=== PATIENT | male | born 1970 | race Caucasian/White ===

== ENCOUNTER 2022-07-15 07:57 | Outpatient (CLI) | payer OTHER, SELFPAY ==
[2022-07-15 10:17] LABS: Albumin* 3.9 g/dL (3.3-5.0)
[2022-07-15 10:18] LABS: Chloride* 106 mmol/L (96-114); Potassium* 4.3 mmol/L (3.6-5.1); Sodium* 140 mmol/L (135-149)
[2022-07-15 10:20] LABS: Aspartate Amino Transferase* 25 U/L (12-35); Bilirubin Total* 0.8 mg/dL (0.1-1.5); Carbon Dioxide* 31 mmol/L (20-32); Cholesterol* 239 mg/dL (90-199); Estimated Glomerular Filt Rate 91 ml/min; Total Protein* 6.9 g/dL (6.0-8.3)
[2022-07-15 10:21] LABS: Alanine Aminotransferase* 30 U/L (4-50); Alkaline Phosphatase* 63 U/L (40-150); Blood Urea Nitrogen* 16 mg/dL (7-30); Calcium* 9.2 mg/dL (8.4-10.6); Glucose* 103 mg/dL (60-115); HDL Cholesterol* 45 mg/dL (>=40); LDL Cholesterol Calculated 145 mg/dL (<100); Triglycerides* 245 mg/dL (40-149)
[2022-07-15 10:52] LABS: PSA Screen* 1.04 ng/mL (0.10-4.00)
== END 2022-07-15 07:58 | disposition home or self-care (01) ==
PROVIDERS: PCP Family Medicine; Visit Provider Family Medicine
DX: E78.5 Hyperlipidemia, unspecified (principal); Z12.5 Encounter for screening for malignant neoplasm of prostate
CPT/HCPCS: 80053; 80061; 84153

== ENCOUNTER 2023-04-18 09:55 | Outpatient (CLI) | payer OTHER, SELFPAY ==
--- NOTE | 2023-04-18 11:13 | W.ANESCHARGE ---
Anesthesia Charges Start Date/Time Anesthesia Start Date: 04/18/23 Anesthesia Start Time: 10:38 Stop Date/Time Anesthesia Stop Date: 04/18/23 Anesthesia Stop Time: 11:10
== END 2023-04-18 09:56 | disposition home or self-care (01) ==
LOC: OP CLINIC 09:55
PROVIDERS: PCP Family Medicine; Visit Provider Surgery
DX: Z12.11 Encounter for screening for malignant neoplasm of colon (principal); K63.5 Polyp of colon; Z80.0 Family history of malignant neoplasm of digestive organs
CPT/HCPCS: 45385; 811; 88305; J2704

== ENCOUNTER 2023-10-23 07:38 | Outpatient (CLI) | payer OTHER, SELFPAY ==
--- OUTSIDE RECORDS SUMMARY | 2023-10-25 08:39 | XMS_ITS | Referral Summary ---
Author Name Unknown Organization [facility] Address [address] [place] [address] Care Team Providers Care Pulp Grinder Feeder Name Role Phone Elsewhere, Pcp Primary Care Provider Unavailabl e Source Comments Patient records contain information from all sites at [facility]. For routine questions regarding patient records, call [phone] during business hours, M-F 8:00 AM - 5:00 PM Central Time. Record requests for emergency care only can be directed to [phone] at any time.[facility] Allergies No known active allergies Medications Medication Sig Dispensed Refills Start Date End Date Status pravastatin (PRAVACHOL) 40 mg tablet Take 40 mg by mouth daily. 06/23/2015 Active triamcinolone (KENALOG) 0.1 % cream Apply topically 2 (two) times a day. Apply to affected area 2 times daily as needed. Avoid face and groin. 30 g 3 12/06/2022 Active Active Problems No known active problems Immunizations Name Administration Dates Next Due Td (Adult), adsorbed 10/24/1997 Tdap 09/13/2010 Social History Tobacco Use Types Packs/Day Years Used Date Smoking Tobacco: Never Smokeless Tobacco: Never Tobacco Cessation:Counseling Given: Not Answered PHQ-2 Answer Date Recorded PHQ-2 Score 0 12/06/2022 Nutrition Answer Date Recorded Nutrition: EVOO Fat Source Unknown 08/14 Nutrition: Servings of Fruits/Vegetables per Day Not on file 08/14/2020 Dental Answer Date Recorded Dental: Regular Dentist Unknown 08/15/19 21 Sex and Gender Information Value Date Recorded Sex Assigned at Not on file Gender Identity Not on file Sexual Orientation Not on file Last Filed Vital Signs Vital Sign Reading Time Taken Comments Blood Pressure 120/85 12/06/2022 10:39 AM CDT Pulse 65 12/06/2022 10:39 AM CDT Temperature 36.3 ??C (97.3 ??F) 12/06/2022 10:39 AM C DT Respiratory Rate 18 11/05/2019 7:55 PM CDT Oxygen Saturation 94% 12/06/2022 10:39 AM CDT Inhaled Oxygen Concentration - - Weight 123 kg (270 lb 4.5 oz) 12/06/2022 10:39 A M CDT Height 173.8 cm (5' 8.43) 12/06/2022 10:39 AM C DT Body Mass Index 40.59 12/06/2022 10:39 AM CDT Plan of Treatment Not on file Procedures Procedure Name Priority Date/Time Associated Diagnosis Comments GLUCOSE, FASTING, S/P Routine 06/23/2015 7:41 AM [facility] [employer] [facility] LIPID PANEL, S Routine 06/23/2015 7:41 AM [facility] [employer] from Last 3 Months or Most Recently Relevant to Health Maintenance Results * (ABNORMAL) Lipid Panel (06/23/2015 7:41 AM [facility] [employer]) Cholesterol, Total 180 <=199 MGDL POWERCHART Comment: 2014 National Lipid Association recommendations for Total Cholesterol in adults ages 18 and up: Desirable <200 mg/dL Borderline high 200-239 mg/dL High 240 mg/dL 2014 National Lipid Association recommendations for Total Cholesterol in children ages 2 to 17. Acceptable <170 mg/dL Borderline High 170-199 mg/dL High 200 mg/dL HX HDL 34(L) >=40 MGDL POWERCHART Comment: 2014 National Lipid Association recommendations for HDL-C in adults ages 18 and up: Low <40 mg/dL (Men) Low <50 mg/dL (Women) 2014 National Lipid Association recommendations for HDL-C in children ages 2 to 17. Low <40 mg/dL Borderline Low 40-45 mg/dL Acceptable >45 mg/dL Triglycerides 362(H) <=149 MGDL POWERCHART Comment: 2014 National Lipid Association recommendations for Triglycerides in adults ages 18 and up: Normal <150 mg/dL Borderline High 150-199 mg/dL High 200-499 mg/dL Very High 500 mg/dL 2014 National Lipid Association recommendations for Triglycerides in children ages 2 to 9. Acceptable <75 mg/dL Borderline High 75-99 mg/dL High 100 mg/dL 2014 National Lipid Association recommendations for Triglycerides in children ages 10 to 17. Acceptable <90 mg/dL Borderline High 90-129 mg/dL High 130 mg/dL Trigs >400mg/dL: Triglycerides >400 mg/dL. Calculated LDL cholesterol is not valid. Non-HDL cholesterol may be used for risk assessment when triglycerides are >400mg/dL. Calculated LDL 74 <=129 MGDL POWERCHART Comment: 2014 National Lipid Association recommendations for LDL-C in adults ages 18 and up: Desirable <100 mg/dL Above desirable 100-129 mg/dL Borderline high 130-159 mg/dL High 160-189 mg/dL Very High 190 mg/dL 2014 National Lipid Association recommendations for LDL-C in children ages 2 to 17. Acceptable <110 mg/dL Borderline High 110-129mg/dL High 130 mg/dL LDL-C >190mg/dL: The markedly elevated LDL level is suggestive of a genetic condition such as familial hypercholesterolemia(FH) or familial defective apolipoprotein B-100 (FDB). Molecular genetic testing for FH and FDB is available through [facility]: FH/ADH Genetic Reflex Panel (test ADHP). Acquired (non-genetic) causes of markedly increased LDL cholesterol include cholestatic liver disease due to the presence of LpX. If a genetic form of hypercholesterolemia is suspected, family studies including biochemical testing for lipids (total cholesterol,triglycerides, LDL cholesterol and HDL cholesterol) are recommended. ??Please contact the laboratory at or the on-line test catalog at [email or web address] for information about how to order these tests or to speak with a genetic counselor. Further interpretation would require clinical information. Total Cholesterol/HDL Ratio 5 POWERCHART HXLDL/HDL 2 POWERCHART Blood 06/23/2015 7:41 AM [facility] [employer] Dajuan Chacon M.D. LAB BLOOD ADD-ON POWERCHART * (ABNORMAL) Glucose, Fasting (06/23/2015 7:41 AM [employer]) Glucose, Fasting, S 105(H) 70 - 99 MGDL POWERCHART Blood 06/23/2015 7:41 AM [employer] Dajuan Chacon M.D. LAB BLOOD NON ADD-ON POWERCHART from Last 3 Months or Most Recently Relevant to Health Maintenance Care Teams Pulp Grinder Feeder Relationship Specialty Start Date End Date Elsewhere, Pcp PCP - General 09/11/19
--- OUTSIDE RECORDS SUMMARY | 2023-10-25 08:39 | XMS_ITS | Continuity of Care Document ---
Author Name Unknown Organization [facility] Address [address] [place] [address] Care Team Providers Care Leadership Development Consultant Name Role Phone Elsewhere, Pcp Primary Care Provider Unavailabl e Source Comments Patient records contain information from all sites at [facility]. For routine questions regarding patient records, call [phone] during business hours, M-F 8:00 AM - 5:00 PM Central Time. Record requests for emergency care only can be directed to [phone] at any time.[facility] Encounters Date Type Department Care Team Description 12/06/2022 10:45 AM CDT Office Visit Department of Family Medicine, [facility], in [address] [phone] Joselin Maurer M.D. Insect Bite Arm Initial Right (Primary Dx) Discharge Disposition: Home or Self Care 12/06/2022 Nurse Triage Department of [facility], [facility], [address] [phone] Alex Mccall R.N. Rash 09/11/2020 Orders Only [facility] 03/26/2020 External Outreach Department of Family Medicine, [facility], in [address] [phone] Obed Abraham P.A.-C., P.A. Infection Upper Respiratory (Primary Dx) 03/26/2020 Clinical Communication Division of Community Internal Medicine, [facility] in [place], [place] [address] [place] [phone] Annette Nj R.N. COVID Nurse Line 11/05/2019 7:47 PM CDT - 11/05/2019 8:43 PM CDT Emergency [facility] [address] [place] [phone] Roman Ortiz APRN, C.N.P., M.S.N. Sprain Ankle Initial Left (Primary Dx) Discharge Disposition: Home or Self Care 07/23/2019 Orders Only [facility] PCP [facility] Cathryn Jarrett M.D. Screening Examination Diabetes Mellitus 04/11/2017 Orders Only Department of Family Medicine, [facility], in [place], [place] [address] [place] [phone] Dajuan Chacon M.D. General Medical Examination Adult 09/01/2016 11:42 AM CDT - 09/01/2016 11:59 PM CDT Hospital Encounter [facility]X [facility] Evy Flynn APRN, C.N.Bonita., R.N. 06/23/2015 7:30 AM DOWEL INSERTING MACHINE OPERATOR - 06/23/2015 11:59 PM DOWEL INSERTING MACHINE OPERATOR Hospital Encounter HX [facility] Dajuan Trevizo M.D. 03/24/2014 7:38 AM CDT - 03/24/2014 11:59 PM CDT Hospital Encounter HX [facility] Dajuan Trevizo M.D. 08/30/2013 - 08/30/2013 11:59 PM CDT Hospital Encounter HX [facility] Dajuan Trevizo M.D. 06/15/2013 9:08 AM DOWEL INSERTING MACHINE OPERATOR - 06/15/2013 11:59 PM DOWEL INSERTING MACHINE OPERATOR Hospital Encounter HX NO MAPPING Eloise Zaman P.A.-C., P.A. 02/01/2013 7:31 AM CDT - 02/01/2013 11:59 PM CDT Hospital Encounter HX [facility] LAB Provider, Historical 02/01/2013 7:45 AM CDT - 02/01/2013 11:59 PM CDT Hospital Encounter HX [facility] Dajuan Trevizo M.D. 01/28/2013 - 01/28/2013 11:59 PM CDT Hospital Encounter [facility]X [facility] Dajuan Chacon M.D. 04/03/2012 8:23 AM CDT - 04/03/2012 11:59 PM CDT Hospital Encounter [facility] Dajuan Chacon M.D. 09/13/2010 2:52 PM CDT - 09/13/2010 11:59 PM CDT Hospital Encounter [facility]X [facility] Martínez Benito M.D. 01/02/2009 - 01/02/2009 11:59 PM CDT Hospital Encounter [facility]X [facility] aDjuan Chacon M.D. 04/27/2007 3:19 PM DOWEL INSERTING MACHINE OPERATOR - 04/27/2007 11:59 PM DOWEL INSERTING MACHINE OPERATOR Hospital Encounter [facility]X [facility] Anna Dodd P.A.-Zoraida., P.A. 08/11/2005 - 08/11/2005 11:59 PM DOWEL INSERTING MACHINE OPERATOR Hospital Encounter HX [facility] Dajuan Chacon M.D. 11/26/2004 1:38 PM CDT - 11/26/2004 11:59 PM CDT Hospital Encounter HX [facility] Aida Arzola, Mario. 06/19/2003 5:19 PM DOWEL INSERTING MACHINE OPERATOR - 06/19/2003 11:59 PM DOWEL INSERTING MACHINE OPERATOR Hospital Encounter HX NO MAPPING Dajuan Lopez M.D. 06/03/2003 2:11 PM DOWEL INSERTING MACHINE OPERATOR - 06/03/2003 11:59 PM DOWEL INSERTING MACHINE OPERATOR Hospital Encounter [facility]X [facility] Provider, Historical 05/27/2003 3:55 PM DOWEL INSERTING MACHINE OPERATOR - 05/27/2003 11:59 PM DOWEL INSERTING MACHINE OPERATOR Hospital Encounter [facility]X [facility] Provider, Historical 04/17/2003 10:18 AM DOWEL INSERTING MACHINE OPERATOR - 04/17/2003 11:59 PM DOWEL INSERTING MACHINE OPERATOR Hospital Encounter HX [facility] Dajuan Chacon M.D. 02/13/2003 5:02 PM CDT - 02/13/2003 11:59 PM CDT Hospital Encounter HX NO MAPPING Stanford Alex M.D. 08/20/2002 10:54 AM DOWEL INSERTING MACHINE OPERATOR - 08/20/2002 11:59 PM DOWEL INSERTING MACHINE OPERATOR Hospital Encounter HX [facility] Dajuan Trevizo M.D. 08/13/2002 2:16 PM DOWEL INSERTING MACHINE OPERATOR - 08/13/2002 11:59 PM DOWEL INSERTING MACHINE OPERATOR Hospital Encounter HX [facility] Dajuan Trevizo M.D. 02/20/2002 - 02/20/2002 11:59 PM CDT Hospital Encounter HX [facility] Dajuan Trevizo M.D. 07/26/2001 8:44 AM DOWEL INSERTING MACHINE OPERATOR - 07/26/2001 11:59 PM DOWEL INSERTING MACHINE OPERATOR Hospital Encounter HX [facility] Dajuan Trevizo M.D. 07/24/2001 - 07/24/2001 11:59 PM DOWEL INSERTING MACHINE OPERATOR Hospital Encounter HX NO MAPPING Provider, Historical Allergies No known active allergies Medications Medication [...] Due Td (Adult), adsorbed 10/24/1997 Tdap 09/13/2010 Family History Medical History Relation Name Comments Heart disease Father questionable h eart disease Atrial septal defect Sister Disorder of thyroid gland Sister Relation Name Status Comments Father Sister Social History Smoking Status as of 10/25/2023 Tobacco Use Types Packs/Day Years Used Date Smoking Tobacco: Never Assessed PHQ-2 Answer Date Recorded PHQ-2 Score 0 [...] Procedure Name Priority Date/Time Associated Diagnosis Comments SARS CORONAVIRUS-2 RNA, V Routine 03/26/2020 2:23 PM CDT Infection Upper Respiratory DX ANKLE LEFT 3+ VIEWS RAD - Semiurgent (Fast; most ED patients; some inpatients) 11/05/2019 8:26 PM CDT LIPID PANEL, S Routine 06/23/2015 7:41 AM DOWEL INSERTING MACHINE OPERATOR GLUCOSE, FASTING, S/P Routine 06/23/2015 7:41 AM DOWEL INSERTING MACHINE OPERATOR LIPID PANEL, S Routine 03/24/2014 8:29 AM CDT CALCIUM, TOT, S/P Routine 02/01/2013 7:5 8 AM CDT CREATININE WITH EGFR, P Routine 02/01/2013 7:58 AM CDT CREATININE WITH EGFR, P Routine 02/01/2013 7:58 AM CDT CREATININE WITH EGFR, S/P Routine 02/01/2013 7:58 AM CDT HX UREA NITROGEN Routine 02/01/2013 7:58 AM CDT GLUCOSE, RANDOM, S/P Routine 02/01/2013 7:58 AM CDT HX AGAP Routine 02/01/2013 7:58 AM CDT BICARBONATE, B/S/P Routine 02/01/2013 7:58 AM CDT CHLORIDE, S/P Routine 02/01/2013 7:58 AM CDT POTASSIUM, S/P Routine 02/01/2013 7:58 AM CDT SODIUM, S/P Routine 02/01/2013 7:58 AM CDT HX CHOL/HDL RATIO Routine 02/01/2013 7:5 8 AM CDT HX VLDL CHOL Routine 02/01/2013 7:58 AM CDT LIPID PANEL, S Routine 02/01/2013 7:58 AM CDT CHOLESTEROL, HDL, S Routine 02/01/2013 7:58 AM CDT TRIGLYCERIDES, S Routine 02/01/2013 7:58 AM CDT CHOLESTEROL, TOTAL, S Routine 02/01/2013 7:58 AM CDT CALCIUM, TOT, S/P Routine 04/03/2012 9:4 9 AM CDT CREATININE WITH EGFR, P Routine 04/03/2012 9:49 AM CDT CREATININE WITH EGFR, P Routine 04/03/2012 9:49 AM CDT CREATININE WITH EGFR, S/P Routine 04/03/2012 9:49 AM CDT HX UREA NITROGEN Routine 04/03/2012 9:49 AM CDT GLUCOSE, RANDOM, S/P Routine 04/03/2012 9:49 AM CDT HX AGAP Routine 04/03/2012 9:49 AM CDT BICARBONATE, B/S/P Routine 04/03/2012 9:49 AM CDT CHLORIDE, S/P Routine 04/03/2012 9:49 AM CDT POTASSIUM, S/P Routine 04/03/2012 9:49 AM CDT SODIUM, S/P Routine 04/03/2012 9:49 AM CDT HX CHOL/HDL RATIO Routine 04/03/2012 9:4 9 AM CDT HX VLDL CHOL Routine 04/03/2012 9:49 AM CDT LIPID PANEL, S Routine 04/03/2012 9:49 AM CDT CHOLESTEROL, HDL, S Routine 04/03/2012 9:49 AM CDT TRIGLYCERIDES, S Routine 04/03/2012 9:49 AM CDT CHOLESTEROL, TOTAL, S Routine 04/03/2012 9:49 AM CDT DX CHEST 1 VIEW Routine 08/13/2002 2:48 PM DOWEL INSERTING MACHINE OPERATOR Results * SARS Coronavirus-2 RNA, V Symptomatic (03/26/2020 2:23 PM CDT) SARS-CoV-2 Specimen Source Swab, Nasopharynx 03/27/2020 10:25 AM CDT ECLR SARS CoV-2 RNA, TMA Undetected Undetected 03/27/2020 10:25 AM CDT ECLR Comment: SARS-CoV-2 RNA absent. This result does not rule out COVID-19 in the patient, as the sensitivity of the test depends on the timing of the specimen collection and the quality of the specimen. Result should be correlated with patient's history and clinical presentation. ----ADDITIONAL INFORMATION---- This test is performed using the Aptima SARS-CoV-2 assay (National Institutes of [employer] (NIH), Inc[employer] which has received Emergency Use Authorization (EUA) by the U.S. Food and Drug Administration. Fact sheets for this Emergency Use Authorization (EUA) assay can be found at the following links: For Healthcare Providers: https://www.fda.gov/media/772076/download For Patients: https://www.fda.gov/media/530516/download Varies (Nasopharynx) 03/26/2020 2:23 PM CDT 03/26/2020 9:17 PM CDT Obed Abraham P.A.-C., P.A. LAB MICR OBIOLOGY - GENERAL ORDERABLES [facility] [address] [place] [address], [facility] ECLR [facility] [address] * DX Ankle Left 3+ Views (11/05/2019 8:26 PM CDT) Anatomical Region Laterality Modality Lower Extremity, Ankle, Musc uloskeletal RST LOS, Musculoskeletal ARZ LOS, Muskuloskeletal FLA LOS Left Digit al Radiography 11/06/2019 8:05 AM CDT Impressions 11/06/2019 8:06 AM CDT Soft tissue swelling of the ankle most pronounced over the lateral malleolus with small age indeterminate avulsion type fracture distal fibula. Chronic appearing ossific fragment adjacent to the medial malleolus. Symmetric ankle mortise with intact talar dome. Narrative 11/06/2019 8:06 AM CDT EXAM: DX ANKLE LEFT 3+ VIEWS Procedure Note Anatoliy Sebastian M.D. - 11/06/2019 EXAM: DX ANKLE LEFT 3+ VIEWS IMPRESSION: Soft tissue swelling of the ankle most pronounced over the lateralmalleolus with small age indeterminate avulsion type fracture distal fibula.Chronic appearing ossific fragment adjacent to the medial malleolus. Symmetricankle mortise with intact talar dome. Roman Ortiz APRN, C.N.P., M.S.N. IMG DIAG NOSTIC IMAGING PROCEDURES * (ABNORMAL) Lipid Panel (06/23/2015 7:41 AM DOWEL INSERTING MACHINE OPERATOR) Only the most recent of4 resultswithin the time period is included. Cholesterol, Total 180 <=199 MGDL POWERCHART Comment: [...] for FH and FDB is available through [facility]: FH/ADH Genetic Reflex Panel (test ADHP). Acquired (non-genetic) causes of markedly increased LDL cholesterol include cholestatic liver disease due to the presence of LpX. If a genetic form of hypercholesterolemia is suspected, family studies including biochemical testing for lipids (total cholesterol,triglycerides, LDL cholesterol and HDL cholesterol) are recommended. ??Please contact the laboratory at or the on-line test catalog at [employer] for information about how to order these tests or to speak with a genetic counselor. Further interpretation would require clinical information. Total Cholesterol/HDL Ratio 5 POWERCHART HXLDL/HDL 2 POWERCHART Blood 06/23/2015 7:41 AM DOWEL INSERTING MACHINE OPERATOR Dajuan Chacon M.D. LAB BLOOD ADD-ON Performing Organization Address [facility] de Phone Number POWERCHART * (ABNORMAL) Glucose, Fasting (06/23/2015 7:41 AM DOWEL INSERTING MACHINE OPERATOR) Glucose, Fasting, S 105(H) 70 - 99 MGDL POWERCHART Blood 06/23/2015 7:41 AM DOWEL INSERTING MACHINE OPERATOR Dajuan Chacon M.D. LAB BLOOD NON ADD-ON Performing Organization Address [facility] Co de Phone Number POWERCHART * HX UREA NITROGEN (02/01/2013 7:58 AM CDT) Only the most recent of2 resultswithin the time period is included. Urea Nitrogen, 24 HR, U 14 MGDL [facility] 02/01/2013 7:58 AM CDT Historical Provider LAB HISTORICAL ORDER S Performing Organization Address [facility] Co de Phone Number [facility] * HX CHOL/HDL RATIO (02/01/2013 7:58 AM CDT) Only the most recent of2 resultswithin the time period is included. Total Cholesterol/HDL Ratio 4.7 [facility] 02/01/2013 7:58 AM CDT Historical Provider LAB HISTORICAL ORDER S [facility] * HX AGAP (02/01/2013 7:58 AM CDT) Only the most recent of2 resultswithin the time period is included. Anion Gap 11 MMOLL [facility] 02/01/2013 7:58 AM CDT Historical Provider LAB HISTORICAL ORDER S [facility] * HX VLDL CHOL (02/01/2013 7:58 AM CDT) Only the most recent of2 resultswithin the time period is included. VLDL cholesterol 41 MGDL [facility] 02/01/2013 7:58 AM CDT Historical Provider LAB HISTORICAL ORDER S Performing Organization Address [facility]/ZIP Co de Phone Number [facility] * Creatinine with Estimated GFR (MDRD), Plasma (02/01/2013 7:58 AM CDT) Only the most recent of4 resultswithin the time period is included. eGFR Black/ >90 [id number] [facility] 02/01/2013 7:58 AM CDT Historical Provider LAB BLOOD ADD-ON [facility] * Triglycerides (02/01/2013 7:58 AM CDT) Only the most recent of2 resultswithin the time period is included. Triglycerides 205 MGDL [facility] 02/01/2013 7:58 AM CDT Narrative [facility] - 08/09/2013 7:39 PM DOWEL INSERTING MACHINE OPERATOR Fasting specimen Historical Provider LAB BLOOD ADD-ON Performing Organization Address [facility] Co de Phone Number [facility] * Sodium (02/01/2013 7:58 AM CDT) Only the most recent of2 resultswithin the time period is included. Sodium, S 144 [facility] 02/01/2013 7:58 AM CDT Historical Provider LAB BLOOD ADD-ON Performing Organization Address [facility] de Phone Number [facility] * Potassium, S (02/01/2013 7:58 AM CDT) Only the most recent of2 resultswithin the time period is included. Potassium, S 4.4 [facility] 02/01/2013 7:58 AM CDT Historical Provider LAB BLOOD ADD-ON Performing Organization Address [facility] de Phone Number [facility] * Cholesterol, High-Density Lipoprotein (HDL) (02/01/2013 7:58 AM CDT) Only the most recent of2 resultswithin the time period is included. HX HDL 35 MGDL [facility] 02/01/2013 7:58 AM CDT Historical Provider LAB BLOOD ADD-ON Performing Organization Address [facility] de Phone Number [facility] * Glucose, Random (02/01/2013 7:58 AM CDT) Only the most recent of2 resultswithin the time period is included. Glucose 106 MGDL [facility] 02/01/2013 7:58 AM CDT Narrative [facility] - 08/09/2013 7:39 PM DOWEL INSERTING MACHINE OPERATOR Fasting specimen Historical Provider LAB BLOOD TROPONIN Performing Organization Address [facility] Co de Phone Number [facility] * Creatinine with Estimated GFR (MDRD) (02/01/2013 7:58 AM CDT) Only the most recent of2 resultswithin the time period is included. Creatinine 1.05 MGDL [facility] 02/01/2013 7:58 AM CDT Historical Provider LAB BLOOD ADD-ON Performing Organization Address [facility] Co de Phone Number [facility] * Cholesterol, Total (02/01/2013 7:58 AM CDT) Only the most recent of2 resultswithin the time period is included. Cholestanol 166 MGDL [facility] 02/01/2013 7:58 AM CDT Narrative [facility] - 08/09/2013 7:39 PM DOWEL INSERTING MACHINE OPERATOR LDL Cholesterol is the primary guide to therapy. The NCEP recommends further evaluation of: patients with cholesterol greater than 200 mg/dL if additional risk factors are present, cholesterol greater than 240 mg/dL, triglycerides greater than 150 mg/dL, or HDL less than 40 mg/dL. Historical Provider LAB BLOOD ADD-ON Performing Organization Address [facility] Co de Phone Number [facility] * Chloride (02/01/2013 7:58 AM CDT) Only the most recent of2 resultswithin the time period is included. Chloride, S 104 [facility]LL [facility] 02/01/2013 7:58 AM CDT Historical Provider LAB BLOOD ADD-ON Performing Organization Address [facility]/ZIP Co de Phone Number [facility] * Bicarbonate (02/01/2013 7:58 AM CDT) Only the most recent of2 resultswithin the time period is included. HX Carbon Dioxide 29 MMOLL [facility] 02/01/2013 7:58 AM CDT Historical Provider LAB BLOOD ADD-ON [facility] * Calcium, Total (02/01/2013 7:58 AM CDT) Only the most recent of2 resultswithin the time period is included. Calcium, Total, S 9.7 MGDL [facility] 02/01/2013 7:58 AM CDT Historical Provider LAB BLOOD ADD-ON [facility] * DX Chest 1 View (08/13/2002 2:48 PM DOWEL INSERTING MACHINE OPERATOR) Anatomical Region Laterality Modality Chest N/A Radiographic Caroline ging 08/13/2002 2:48 PM DOWEL INSERTING MACHINE OPERATOR Narrative 08/13/2002 2:48 PM DOWEL INSERTING MACHINE OPERATOR 13-Aug-2002 14:48:00 ??Exam: Chest-Single View Indications: ?? ORIGINAL REPORT - 13-Aug-2002 14:48:00 This [facility]) exam was historically loaded. PA AND LATERAL CHEST: History: ??Chest pain. Normal size of the heart, adilene, the aorta, and the peripheral pulmonary vessels. ??An infiltrate is not identified. ??No comparison. ??No pleural effusion. Robert Villarreal M.D./rosalia D: ??08/13/2002 T: ??08/14/2002 Electronically signed by: ?? Samantha Villarreal MD 13-Aug-2002 14:48 Procedure Note Johny Villarreal M.D. - 09/14/2017 13-Aug-2002 14:48:00 Exam: Chest-Single View Indications: ORIGINAL REPORT - 13-Aug-2002 14:48:00 This [facility] ([facility]) exam was historically loaded. PA AND LATERAL CHEST: History: Chest pain. Normal size of the heart, adilene, the aorta, and the peripheral pulmonary vessels. An infiltrate is not identified. No comparison. No pleural effusion. Robert iVllarreal M.D./rosalia Electronically signed by: Samantha Villarreal MD 13-Aug-2002 14:48 Historical Provider IMG DIAGNOSTIC IMAGI NG PROCEDURES Visit Diagnoses Diagnosis Start Date General Medical Examination Adult 04/11/2017 Screening Examination Diabetes Mellitus 07/23/2019 Sprain Ankle Initial Left 11/05/2019 Infection Upper Respiratory 03/26/2020 Insect Bite Arm Initial Right 12/06/2022 Care Teams Leadership Development Consultant Relationship Specialty Start Date End Date Elsewhere, Pcp PCP - General 09/11/19
--- OUTSIDE RECORDS SUMMARY | 2023-10-25 08:40 | XMS_ITS ---
Author Name Unknown Organization [facility] Address [address] [place] [address] Care Team Providers Care Apron Trimmer Name Role Phone Unavailable Unavailable Unavailable Surgery Details Not on file Complications Check Surgery Details section. Procedure Estimated Blood Loss Check Surgery Details section. Procedure Findings Check Surgery Details section. Procedure Specimens Taken Check Surgery Details section.
== END 2023-10-23 07:39 | disposition home or self-care (01) ==
LOC: NFLDREF 10-25 08:35
PROVIDERS: PCP Family Medicine; Referring Provider Family Medicine; Visit Provider Family Medicine
DX: Z00.00 Encounter for general adult medical examination without abnormal findings (principal); E78.5 Hyperlipidemia, unspecified; E66.9 Obesity, unspecified; Z68.41 Body mass index [BMI] 40.0-44.9, adult
CPT/HCPCS: 80053; 80061